=== PATIENT | male | born 1935 | race Caucasian/White ===

== ENCOUNTER → 2016-10-01 | Outpatient (CLI) | payer MEDICARE, OTHER ==
[~2016-10-01] MED LIST: AMBIEN DPS5 MG PO; AMLODIPINE BESYL5 MG PO; CARDIZEM CD DP120 MG PO; CELEXA40 M1 PO; CHERATUSSIN AC473 ML PO; COLACE100 MG PO; CRESTOR10 MG PO; DUONEB DPS3 ML IH; ECOTRIN81 MG PO; ELIQUIS5 MG PO; FLOMAX DPS0.4 MG PO; LEVAQUIN DPS750 MG PO; LOPRESSOR DPS50 MG PO; MAALOX DPS30 ML PO; MAGOX 400400 MG PO; MELATONIN10 M2 PO; MILK OF MAGNESI10 ML PO; MOBIC15 MG PO; MUCINEX600 MG PO; NITROSTAT0.4 MG SL; OCUVITE SOFTGE1 EACH PO; OMNICEF DPS300 MG PO; PRILOSEC DPS20 MG PO; SENOKOT S1 TAB PO; TYLENOL #3 DPS1 TAB PO; TYLENOL DPS325 MG PO; TYLENOL325 MG PO; ULTRAM DPS50 MG PO
== END | disposition home or self-care (01) ==
LOC: RAD.S 09-08 13:30 → PTH.S 09-08 13:30 → RAD.S 09-08 14:00 → PTH.S 09:00
DX: R93.3 Abnormal findings on diagnostic imaging of other parts of digestive tract (principal); Z79.01 Long term (current) use of anticoagulants; Z79.2 Long term (current) use of antibiotics; Z79.899 Other long term (current) drug therapy; Z88.8 Allergy status to other drugs, medicaments and biological substances